=== PATIENT | male | born 1960 | race Caucasian/White ===

== ENCOUNTER 2016-06-04 05:09 | Inpatient (IN) | payer OTHER ==
[2016-05-31 11:35] LABS: URINE BILIRUBIN NEGATIVE (Negative); URINE BLOOD TRACE (Negative); URINE COLOR YELLOW; URINE GLUCOSE-RANDOM* NEGATIVE (Negative); URINE KETONES NEGATIVE (Negative); URINE LEUKOCYTES-REFLEX NEGATIVE (Negative); URINE PROTEIN (DIPSTICK) NEGATIVE (Negative); URINE SPECIFIC GRAVITY 1.025 (1.003-1.035); URINE UROBILINOGEN 0.2 E.U./dl (0.2-1.0)
[2016-05-31 11:37] LABS: HEMATOCRIT 41.6 % (42.0-52.0); MCH 29.2 pg (26.0-34.0); MCHC 33.7 % (28.0-37.0); MCV 86.5 fL (80.0-100.0); RBC 4.8 mil/uL (4.50-6.00); RDW 12.8 % (10.5-14.5); WBC 5.5 thou/uL (4.0-11.0)
[2016-05-31 11:44] LABS: INR 1.1; PROTIME 11.3 Seconds (9.3-11.4)
[2016-05-31 11:49] LABS: ALBUMIN 4.1 g/dL (3.4-5.0); CALCIUM 9.1 mg/dL (8.5-10.1); CREATININE 0.7 mg/dL (0.6-1.3); POTASSIUM 4.3 mmol/L (3.5-5.1)
[~2016-06-04] VITALS: Ht 172.7 cm; Wt 94.8 kg
[2016-06-04] VITALS (7 sets, daily range): BP systolic 102–125; BP diastolic 58–77
--- NOTE | ~2016-06-04 | O ---
[facility] [place] [address] OPERATIVE REPORT Name: KYLER ROMERO Room #: 540-P DIS IN M.R.#: [id number] Admission: 06/04/16 Attend Phys: Stephen Marino MD Discharge: 06/07/16 Date of : 56 Report #: [id number] THIS REPORT FOR: //name// CC: Stephen Lyman DO DATE OF SERVICE: 06/04/2016 PREOPERATIVE DIAGNOSIS: Left knee degenerative joint disease, severe. POSTOPERATIVE DIAGNOSIS: Left knee degenerative joint disease, severe. OPERATIVE PROCEDURE: Left total knee arthroplasty. SURGEON: Stephen Marino MD. FINISHED STOCK INSPECTOR: Jerome Austin, nurse practitioner. INDICATIONS FOR FINISHED STOCK INSPECTOR: During the course of operation, extensive manipulation, retraction and limb positioning was required. This was afforded to me by my retail event assistant. ANESTHESIA: General. INDICATIONS: See hospital H and P revisions 06/04/2016. IMPLANTS UTILIZED: We used a DePuy PFC knee system. We used a cruciate retaining press fit femoral component size 4. We used a size 4 tibial tray with a 10 mm insert and a 41 mm oval dome patella. DESCRIPTION OF PROCEDURE: After adequate general anesthesia had been obtained, the patient's left lower extremity was prepped and draped in the usual meticulous sterile fashion. Limb was exsanguinated with gravity, tourniquet was inflated to 350 torr. Anterior midline incision was made, subQ divided sharply. Hemostasis was obtained with electrocautery. A medial parapatellar incision was made. Infrapatellar fat pad excised. Medial release performed. A drill was used to drill the distal femur. This hole was enlarged, irrigated, suctioned, and the intramedullary guide placed the full length of the femur. The distal femoral cutting guide was pinned to appropriate height, distal femoral cut was made. Measuring device determined size 4 as appropriate size for this for this patient. We marked the distal femur, and impacted the cutting guide into place and the anterior, posterior, and chamfer cuts were made. Rongeur was used to remove additional osteophytes. At this time, the ACL was transected, tibia translated anteriorly, menisci were [facility] [address] [place] [address] OPERATIVE REPORT Name: KYLER ROMERO Room #: 540-P DIS IN M.R.#: [id number] Admission: 06/04/16 Attend Phys: Stephen Marino MD Discharge: 06/07/16 Date of : 56 Report #: [id number] excised. The drill was used to drill the central portion of the tibia. This hole was enlarged, irrigated, suctioned, and the intramedullary guide placed the full length of the tibia. Proximal tibial cutting guide was placed at appropriate height. Proximal tibial cut was made. 4 tray gave us the best coverage on the tibia. We put the trial components in position with a 4 spacer, that previously had the best flexion and extension gap. Patella was then addressed. It was measured, cutting guide clamped into place. Patellar cut was made. A 41 template gave us the best coverage. Pedicles were drilled. Trial component put in place. It tracked normally. At this time, the knee was taken through several cycles of flexion and extension. The optimal tibial tray rotation was marked, distal femur drilled. Trial components were removed. We irrigated the knee with both pulse lavage and antibiotic irrigation. Bone plugs were placed in the proximal tibia and distal femur. The cement was vacuum mixed, and when it reached the appropriate consistency, the knee was thoroughly dried. The tibial tray was cemented in to place. Excess cement was removed. The polyethylene was impacted in to place, and the femur impacted in to place. The knee was taken out to 30 degrees of flexion with uniform compression placed across the components. Patellar button was then cemented into place and again excess cement was removed. At this time, irrigation was placed in the wound and allowed to rest in the wound while the cement fully cured. The knee was once again irrigated, dried thoroughly, and inspected. Drains were placed superolaterally both deep and superficial. The retinacular layer closed with a combination of interrupted [id number] #1 Vicryl, as well as a running #1 Tevdek. SubQ closed with 2-0 Monocryl. Skin closed with sharan. Sterile compressive dressing was complied. Tourniquet was deflated. <ELECTRONICALLY SIGNED> By: Stephen Marino MD 06/11/16 1420 1012 1409 Stephen Marino MD /nt
--- NOTE | ~2016-06-04 | H ---
[facility] [address] [address] HISTORY AND PHYSICAL Name: KYLER ROMERO Room #: 540-P DIS IN M.R.#: [id number] Admission: 06/04/16 Attend Phys: Stephen Marino MD Discharge: 06/07/16 Date of : 56 Report #: [id number] THIS REPORT FOR: //name// For History and Physical, please see office documentation/handwritten note in the patient's medical record. <ELECTRONICALLY SIGNED> By: Stephen Marino MD 06/11/16 1420 1551 Stephen Marino MD /
--- NOTE | ~2016-06-04 | EKG ---
[address] [address] ELECTROCARDIOGRAM REPORT Name: HEATHERKYLER Room #: PRE IN M.RLatoya#: [id number] Admission: Attend Phys: Stephen Marino MD Discharge: Date of : 56 Report #: [id number] THIS REPORT FOR: //name// [facility] Test Date: 2016-05-31 Test Time: 11:29:51 Pat Name: KYLER ROMERO Department: Room: Gender: Marketing Content Manager: darrian : 1960 Requested By: Stephen Marino Order Number: [id number] MD: Ross Avila Measurements Intervals [place] Rate: 48 P: 27 [place]: 215 QRS: 34 QRSD: 86 T: 17 QT: 436 QTc: 390 Interpretive Statements Sinus bradycardia Borderline prolonged [place] interval No previous ECG available for comparison Electronically Signed On 05-31-2016 14:20:48 FLY RAISER LOCKSTITCH by Ross Avila [email or web address] <ELECTRONICALLY SIGNED> By: Ross Avila MD 05/31/16 1420 1129 1129 Ross Avila MD /EPI
[~2016-06-04 05:09] MED LIST: ALDACTONE25 MG PO; ALTACE10 MG PO; ASPIR 8181 MG PO; CALCIUM500 MG PO; COREG25 MG PO; IBUPROFEN 200200 M1 PO; LIPITOR40 MG PO; NORVASC10 MG PO; PLAVIX 75 MG TA75 M1 PO
[2016-06-05] VITALS: BP 131/76
[2016-06-05 04:36] VITALS: BP 124/70
[2016-06-05 04:59] LABS: HEMATOCRIT 39.2 % (42.0-52.0); HEMOGLOBIN 13.3 gm/dL (14.0-18.0); MCH 29.3 pg (26.0-34.0); MCHC 34.1 % (28.0-37.0); MCV 85.9 fL (80.0-100.0); PLATELET COUNT 215 thou/uL (150-400); RBC 4.56 mil/uL (4.50-6.00); RDW 12.3 % (10.5-14.5); WBC 13.6 thou/uL (4.0-11.0)
[2016-06-05 05:13] LABS: MANUAL DIFF YES
[2016-06-05 05:16] LABS: ALBUMIN 3.4 g/dL (3.4-5.0); CALCIUM 8.5 mg/dL (8.5-10.1); CREATININE 0.7 mg/dL (0.6-1.3); MAGNESIUM 1.9 mg/dL (1.8-2.4); POTASSIUM 4.1 mmol/L (3.5-5.1); TOTAL BILIRUBIN 0.4 mg/dL (<0.1-1.0); TOTAL PROTEIN 6.5 g/dL (6.4-8.2)
[2016-06-05 06:56] LABS: ABSOLUTE NEUTROPHILS 11.7 thou/uL (1.4-8.2); TOTAL CELL COUNT 100
[2016-06-05 07:38] VITALS: BP 123/70
[2016-06-05 16:35] VITALS: BP 141/63
[2016-06-05 20:34] VITALS: BP 129/65
[2016-06-06 03:30] VITALS: BP 130/70
[2016-06-06 04:37] LABS: HEMATOCRIT 37.6 % (42.0-52.0); HEMOGLOBIN 12.4 gm/dL (14.0-18.0); MCH 29.5 pg (26.0-34.0); MCV 89.5 fL (80.0-100.0); RBC 4.2 mil/uL (4.50-6.00); RDW 12.8 % (10.5-14.5); WBC 9.6 thou/uL (4.0-11.0)
[2016-06-06 16:23] VITALS: BP 122/64
[2016-06-06 20:00] VITALS: BP 119/65
[2016-06-07] VITALS (7 sets, daily range): BP systolic 124–126; BP diastolic 66–75
[2016-06-07 05:48] LABS: HEMOGLOBIN 11.6 gm/dL (14.0-18.0); MCH 29.6 pg (26.0-34.0); MCHC 33.3 % (28.0-37.0); MCV 88.9 fL (80.0-100.0); RBC 3.94 mil/uL (4.50-6.00); RDW 12.6 % (10.5-14.5); WBC 8.4 thou/uL (4.0-11.0)
[2016-06-07] MEDS ORDERED: OXYCODONE-APAP1 EAC6 PO (06:43)
[2016-06-07] MEDS ORDERED: XARELTO10 MG PO (06:43)
[2016-06-07] MEDS ORDERED: PLAVIX 75 MG TA75 M1 PO (09:56)
== END 2016-06-07 13:27 | disposition home health service (06) | DRG 470 ==
LOC: 5S 05:09 → TBA 05:09 → PRE 10:30 → 5S 11:33 → PRE 15:18 → 5S 06-07 13:27
PROVIDERS: Nurse Practitioner; Orthopaedic Surgery
PROC: 0SRD0J9 Replacement of Left Knee Joint with Synthetic Substitute, Cemented, Open Approach (ICD-10-PCS; principal; 2016-06-04)
DX: M17.12 Unilateral primary osteoarthritis, left knee (principal); I10 Essential (primary) hypertension; K59.00 Constipation, unspecified; Z95.5 Presence of coronary angioplasty implant and graft
CPT/HCPCS: 10785; 50010; 50101; 50415; 50612; 50954; 51130; 51225; 51320; 51771; 52001; 52282; 53000; 53078; 53364; 56525; 56527; 62110; 62900; 70005

== ENCOUNTER → 2021-03-22 | Outpatient (CLI) | payer OTHER ==
[~2021-03-22] MED LIST changes: +ADULT LOW DOSE81 MG PO; -ALDACTONE25 MG PO; -ASPIR 8181 MG PO; +ATORVASTATIN CA80 MG PO; +FISH OIL 1,2001 EAC4 PO; +OXYCODONE-APAP1 EAC6 PO; +PLAVIX 75 MG TA75 MG PO; +SPIRONOLACTONE25 M1 PO; +XARELTO10 MG PO
[2021-03-22 11:21] LABS: HEMATOCRIT 40.6 % (42.0-52.0); HEMOGLOBIN 13.4 gm/dL (14.0-18.0); MCHC 33.1 g/dL (28.0-37.0); MCV 87.6 fL (80.0-100.0); RBC 4.63 mil/uL (4.50-6.00); RDW 13.1 % (10.5-14.5); WBC 4.9 thou/uL (4.0-11.0)
[2021-03-22 11:27] LABS: URINE BILIRUBIN NEGATIVE (Negative); URINE BLOOD NEGATIVE (Negative); URINE CLARITY CLEAR; URINE COLOR YELLOW; URINE GLUCOSE-RANDOM* NEGATIVE (Negative); URINE KETONES NEGATIVE (Negative); URINE LEUKOCYTES-REFLEX NEGATIVE (Negative); URINE NITRITE-REFLEX NEGATIVE (Negative); URINE PROTEIN (DIPSTICK) NEGATIVE (Negative); URINE SPECIFIC GRAVITY 1.025 (1.005-1.035); URINE UROBILINOGEN 0.2 E.U./dl (0.2-1.0)
[2021-03-22 11:50] LABS: APTT 25.6 Seconds (24.5-32.8); INR 1.04; PROTIME 11.3 Seconds (10.5-12.1)
[2021-03-22 12:15] LABS: ALBUMIN 3.8 g/dL (3.4-5.0); CALCIUM 8.9 mg/dL (8.5-10.1); CREATININE 0.9 mg/dL (0.7-1.3); POTASSIUM 4.4 mmol/L (3.5-5.1); TOTAL BILIRUBIN 0.4 mg/dL (0.2-1.0); TOTAL PROTEIN 6.7 g/dL (6.4-8.2)
--- NOTE | 2021-03-22 15:46 | EKG ---
[address] [employer] [place] [address] ELECTROCARDIOGRAM REPORT Name: KYLER ROMERO Room #: REG CLWilliam Jimenez#: [id number] Admission: 03/22/21 Attend Phys: Claudy Colunga, Discharge: Date of : 56 Report #: [id number] [facility] Test Date: 2021-03-22 Test Time: 11:01:53 Pat Name: KYLER ROMERO Department: Room: Gender: Case Mgr: Jose KNOX : 1960 Requested By: Claudy Colunga Order Number: [id number] MD: Jude Melendez Measurements Intervals [place] Rate: 57 P: 31 [place]: 228 QRS: 47 QRSD: 87 T: 41 QT: 407 QTc: 397 Interpretive Statements Sinus rhythm Compared to ECG 05/31/2016 11:29:51 Sinus bradycardia no longer present Electronically Signed On 03-22-2021 15:46:37 CDT by Jude Melendez [email or web address] <ELECTRONICALLY SIGNED> By: Jude Melendez MD, [facility] 03/22/21 1546 1101 1101 Jude Melendez MD, FACC /EPI
== END ==
LOC: PAC 10:01
PROVIDERS: ATTEND Specialist
DX: Z01.810 Encounter for preprocedural cardiovascular examination (principal); Z01.812 Encounter for preprocedural laboratory examination; R00.1 Bradycardia, unspecified; M48.02 Spinal stenosis, cervical region

== ENCOUNTER 2021-04-02 11:37 | Inpatient (IN) | payer OTHER ==
[~2021-04-02] VITALS: Ht 175.3 cm; Wt 97.1 kg
[2021-04-02 13:38] VITALS: BP 138/71
--- NOTE | 2021-04-02 20:38 | NUR ---
PT ADMITTED TO THE UNIT FROM PACU AT APPROXIMATELY 1915. PT IS A/O X4 AND IS UP WITH ASSISTANCE. ROOM AIR. VSS. AFEBRILE. ADMISSION IS COMPLETE. PT HAS BEEN EDUCATED ON USE OF CALL LIGHT AND BED CONTROLS.
[2021-04-02 20:45] VITALS: BP 127/65
[2021-04-03 04:33] VITALS: BP 131/78
[2021-04-03 08:00] VITALS: BP 116/60
--- NOTE | 2021-04-03 10:41 | NUR ---
Assumed care of pt at 0700. Pt a&ox4. Pain controlled with prn pain medications. Old drainage on dressing. Will change prior to discharge. Pt worked with physical therapy and is safe to discharge to home. Call light within reach.
--- NOTE | 2021-04-03 11:09 | NUR ---
pt. had intermittent lower back pain with numbness x 1 year. His pain worsened over the last 3-4 months. He failed outpt treatment with physical. Lumbar Laminectomy. Chart review. Visited with marin Da Silva & jacob x 4, and able to make his needs know. 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 He would like to use hh through [employer] or use the outpt therapy at work. Lives with like, 1 step enter, 10 steps to bedroom. Independent. Has walker, manage own medication. Drives vehicle. Will cont. following as needed for dc needs.
[2021-04-03] MEDS ORDERED: PERCOCET PO (12:15)
[2021-04-03 13:48] VITALS: BP 116/60
--- NOTE | 2021-04-03 13:52 | NUR ---
DISCHARGE NOTE: PRANAV notified that pt will need HH services. PRANAV faxed HH referral to [facility]. Spoke with Yolanda in intake to confirm info was received. Awaiting final discharge orders/summary at this time. Contact info for [facility] placed in pt's discharge summary. PRANAV is following to finalize discharge.
[2021-04-03 16:14] VITALS: BP 116/60
--- NOTE | 2021-04-04 09:44 | NUR ---
PRANAV faxed discharge ppwk with orders to [facility] this morning. PRANAV spoke with Apolinar in intake at [facility], who confirmed info was received. No additional SW needs identified at this time, but is available to assist should needs arise.
== END 2021-04-03 16:36 | disposition home health service (06) | DRG 517 ==
LOC: OR → TBA 11:37 → OR 13:47 → 4S 19:07 → OR 19:08 → 4S 04-03 16:36
PROVIDERS: ADMIT Specialist; ATTEND Specialist
PROC: 01NB0ZZ Release Lumbar Nerve, Open Approach (ICD-10-PCS; principal; 2021-04-02)
DX: M48.061 Spinal stenosis, lumbar region without neurogenic claudication (principal); Z88.0 Allergy status to penicillin; Z88.8 Allergy status to other drugs, medicaments and biological substances; I10 Essential (primary) hypertension; E78.5 Hyperlipidemia, unspecified; Z20.822 Contact with and (suspected) exposure to COVID-19
CPT/HCPCS: 10102; 50010; 50101; 50402; 51751; 56525; 56528; 57103; 58457; 58567; 62110; 62900; 65130; 70005